=== PATIENT | male | born 1990 | race Caucasian/White ===

== ENCOUNTER → 2017-09-11 | Outpatient (REF) | payer OTHER ==
[2017-09-11 16:49] LABS: HEMATOCRIT 46.6 % (42.0-52.0); MEAN CORPUSCULAR HEMOGLOBIN 27.4 pg (27.0-33.0); MEAN CORPUSCULAR HGB CONC 32.2 g/dl (32.0-36.5); MEAN CORPUSCULAR VOLUME 85.2 fl (80.0-96.0); PLATELET COUNT, AUTOMATED 186 10^3/uL (150-450); RED BLOOD COUNT 5.47 10^6/uL (4.30-6.10); RED CELL DISTRIBUTION WIDTH 12.8 % (11.5-14.5); WHITE BLOOD COUNT 10.4 10^3/uL (4.0-10.0)
[2017-09-11 17:38] LABS: ANION GAP 8 MEQ/L (8-16); BLOOD UREA NITROGEN 16 MG/DL (7-18); CALCIUM LEVEL 9.1 MG/DL (8.5-10.1); CARBON DIOXIDE LEVEL 27 MEQ/L (21-32); CHLORIDE LEVEL 101 MEQ/L (98-107); CREATININE FOR GFR 1.07 MG/DL (0.70-1.30); GLOMERULAR FILTRATION RATE > 60.0 (>60); GLUCOSE, FASTING 74 MG/DL (70-100); POTASSIUM SERUM 4.4 MEQ/L (3.5-5.1); SODIUM LEVEL 136 MEQ/L (136-145)
== END ==
LOC: M SFHCLERA 13:51
DX: R53.83 Other fatigue (principal)

== ENCOUNTER 2018-06-07 23:12 | Emergency (ER) | payer OTHER ==
[2018-06-08] MEDS: hydroCHLOROthiazide 12.5 MG CAPSULE PO (00:35)
[2018-06-08 00:54] LABS: BASO % 0.3 % (0.0-1.0); EOS # 0.2 10^3/uL (0.0-0.50); EOS % 1.9 % (0.0-3.0); HEMOGLOBIN 14.2 g/dl (13.5-17.5); IMMATURE GRANULOCYTE % 0.4 % (0-3.0); LYMPH # 1.1 10^3/uL (1.5-4.5); LYMPH % 10.7 % (24.0-44.0); MEAN CORPUSCULAR HEMOGLOBIN 28.2 pg (27.0-33.0); MEAN CORPUSCULAR HGB CONC 32.3 g/dl (32.0-36.5); MEAN CORPUSCULAR VOLUME 87.3 fl (80.0-96.0); MONO # 1.1 10^3/uL (0.0-0.8); MONO % 10.1 % (0.0-5.0); NEUTROPHILS # 8.1 10^3/uL (1.8-7.7); NEUTROPHILS % 76.6 % (36.0-66.0); PLATELET COUNT, AUTOMATED 164 10^3/uL (150-450); RED BLOOD COUNT 5.04 10^6/uL (4.30-6.10); RED CELL DISTRIBUTION WIDTH 13.2 % (11.5-14.5); WHITE BLOOD COUNT 10.5 10^3/uL (4.0-10.0)
[2018-06-08 00:59] LABS: APPEARANCE, URINE CLEAR (CLEAR); BACTERIA, URINE AUTO NEGATIVE (NEGATIVE); BILIRUBIN, URINE AUTO NEGATIVE (NEGATIVE); BLOOD, URINE BLOOD NEGATIVE (NEGATIVE); COLOR, URINE YELLOW (YELLOW); GLUCOSE, URINE (UA) AUTO NEGATIVE (NEGATIVE); KETONE, URINE AUTO NEGATIVE (NEGATIVE); LEUKOCYTE ESTERASE, URINE AUTO NEGATIVE (NEGATIVE); MUCUS, URINE SMALL (NEGATIVE); NITRITE, URINE AUTO NEGATIVE (NEGATIVE); PROTEIN, URINE AUTO NEGATIVE (NEGATIVE); RBC, URINE AUTO 1 /HPF (0-3); SQUAMOUS EPITHELIAL CELL UR AU 0 /HPF (0-6); UROBILINOGEN, URINE AUTO 0.2 mg/dL (0.0-2.0); WBC, URINE AUTO 0 /HPF (0-3)
[2018-06-08 01:16] LABS: ANION GAP 6 MEQ/L (8-16); BLOOD UREA NITROGEN 19 MG/DL (7-18); CALCIUM LEVEL 8.9 MG/DL (8.5-10.1); CARBON DIOXIDE LEVEL 28 MEQ/L (21-32); CHLORIDE LEVEL 106 MEQ/L (98-107); CREATININE FOR GFR 1.23 MG/DL (0.70-1.30); GLOMERULAR FILTRATION RATE > 60.0 (>60); GLUCOSE, FASTING 98 MG/DL (70-100); POTASSIUM SERUM 4.3 MEQ/L (3.5-5.1); SODIUM LEVEL 140 MEQ/L (136-145)
[2018-06-08 01:27] LABS: INFLUENZA A AMPLIFICATION NEGATIVE (NEGATIVE); INFLUENZA B AMPLIFICATION NEGATIVE (NEGATIVE)
[2018-06-08] MEDS: BENZONATATE 100 MG CAP PO (02:00)
== END 2018-06-08 02:09 | disposition home or self-care (01) ==
LOC: M ED 23:12
DX: J06.9 Acute upper respiratory infection, unspecified (principal); Z76.0 Encounter for issue of repeat prescription; I10 Essential (primary) hypertension; Z79.899 Other long term (current) drug therapy
CPT/HCPCS: 71046

== ENCOUNTER 2018-07-27 12:43 | Emergency (ER) | payer OTHER ==
[~2018-07-27] VITALS: Ht 180.3 cm; Wt 106.8 kg
[~2018-07-27 12:43] MED LIST: GUAI1SOL7 PO; HYDR12.55 PO; LISI40TA PO; TESS100C PO
[2018-07-27] MEDS ORDERED: MOTR200T44 PO (12:50)
[2018-07-27] MEDS ORDERED: APAP500T10 PO (12:50)
[2018-07-27] MEDS ORDERED: ACETAMINOPHEN 325 MG TAB PO ONE (13:00)
[2018-07-27] MEDS ORDERED: IBUPROFEN 800 MG TAB PO ONE (13:15)
[2018-07-27] MEDS ORDERED: AMOX250C3 PO (13:19)
[2018-07-27 13:43] VITALS: BP 138/76
[2018-07-27 13:56] LABS: INFLUENZA A AMPLIFICATION NEGATIVE (NEGATIVE); INFLUENZA B AMPLIFICATION NEGATIVE (NEGATIVE)
== END 2018-07-27 13:45 | disposition home or self-care (01) ==
LOC: M ED 12:43
DX: J02.0 Streptococcal pharyngitis (principal); I10 Essential (primary) hypertension

== ENCOUNTER → 2019-05-01 | Outpatient (REF) | payer OTHER ==
[~2019-05-01] MED LIST changes: +AMOX250C3 PO; +APAP500T10 PO; +MOTR200T44 PO
== END ==
LOC: M LAB REF 09:23
PROVIDERS: ATTEND Physician Assistant
DX: J02.9 Acute pharyngitis, unspecified (principal)

== ENCOUNTER → 2020-01-01 | Outpatient (CLI) | payer OTHER ==
--- NOTE | 2020-01-01 13:24 | REP ---
Clinical: Pain. Technique: AP, lateral, bilateral oblique views of the right ankle. Comparison: None. Findings: Multiple corticated medial and lateral malleolar fracture fragments and chronic calcifications in the posterior joint space suggest old injuries. Acute lateral soft tissue swelling consist with inversion injury. No obvious acute fracture identified. Impression: Lateral swelling consistent with acute inversion injury. Chronic changes related to multiple old injuries/fractures. Electronically Signed by Diaz Renner MD 01/01/2020 01:16 P
== END ==
LOC: M WUC 12:51
PROVIDERS: ATTEND Physician Assistant
DX: M25.571 Pain in right ankle and joints of right foot (principal); M79.89 Other specified soft tissue disorders

== ENCOUNTER → 2020-02-02 | Outpatient (CLI) | payer OTHER ==
--- NOTE | 2020-02-02 14:21 | REP ---
RIGHT RIBS: REASON FOR EXAM: Strain of the anterior chest wall muscles. No direct trauma. FINDINGS: Five views of the ribs show no acute fracture or destructive osseous lesion. The accompanying frontal view of the chest shows no cardiomegaly, infiltrates, effusions, or pneumothoraces. IMPRESSION: Negative ribs series. Electronically Signed by Scotty Jaimes DO 02/02/2020 04:57 P
== END ==
LOC: M WUC 10:52
PROVIDERS: ATTEND Physician Assistant
DX: S29.011A Strain of muscle and tendon of front wall of thorax, initial encounter (principal); X58.XXXA Exposure to other specified factors, initial encounter; Y92.89 Other specified places as the place of occurrence of the external cause

== ENCOUNTER 2020-03-03 23:56 | Emergency (ER) | payer OTHER ==
[2020-03-04] MEDS ORDERED: ISOVUE-370 76% 100ML VIAL As Ordered ONE (01:22)
[2020-03-04] MEDS ORDERED: MORPHINE 4 MG/ML 1ML VIAL/SYRINGE (J2270) As Ordered ONE (01:25)
[2020-03-04] MEDS ORDERED: ONDANSETRON 4MG/2ML VIAL As Ordered ONE (01:36)
--- NOTE | 2020-04-30 11:08 | HPE ---
DATE OF ADMISSION: 03/04/2020 CHIEF COMPLAINT: Groin and leg pain. HISTORY OF PRESENT ILLNESS: Mr. Calderon is a healthy 30-year-old male admitted for hypertension. He was using a bread knife to separate a frozen burger delia roughly about 11 p.m. last night, March 03, 2020, when the knife slipped and hit right his groin and was bleeding. His friend then drove him to the hospital. He spent from midnight up to about 4 a.m. this morning here in the emergency room being observed here. They have stopped the bleeding with local pressure and sent him home. He had a CT angiogram of his leg showing injury to part of the sartorius, but intact femoral artery and vein and a small blush right where the muscles are. This seems to have stabilized and he was discharged home. When he got home, the patient noted continued oozing from the wound; this was stapled closed and thus he called the ambulance and brought him back here in the hospital. He is hemodynamically stable, but he is complaining of increasing pain, swelling on his right leg with some mild numbness along the medial side of his thigh, also difficulty in urinating and ambulating due to pain from the pressure in that area. PAST MEDICAL HISTORY: Hypertension. PAST SURGICAL HISTORY: None. REVIEW OF SYSTEMS: He was well prior to his accident. All other systems negative. He denies any prior history of bleeding or chronic problems. He is not on any blood thinner. He denies any chronic back pain or discomfort. PHYSICAL EXAMINATION: His vitals here in the emergency room shows he is hemodynamically stable with elevated blood pressure. Last night on presentation, his blood pressure was 151/98, temperature of 99, pulse rate of 115, saturation 97% on room air. Today, his blood pressure is 145/83 on the monitor. He is seen reclining on the stretcher relatively comfortable, except with movement and change in position. Skin is warm, moist. Normocephalic, atraumatic. [place] palpebral conjunctivae, non-icteric sclerae. Neck supple. No other signs of external injury except for the right groin. Lung sounds are clear to auscultation bilaterally. No wheezing. Heart: Rate and rhythm are regular with no murmurs. Abdomen: Soft, non-distended, nontender. Over the right groin area, there is roughly about a 2 cm slightly oblique wound that is closed with two gary. Underneath shows evidence for bruising and hematoma. There is no currently active oozing at the area. The rest of the right lower extremity shows no swelling. He is able to move his knee and ankle. He has got intact sensation to the whole of his leg. He has got good distal pulses. The femoral pulse is hard to ascertain due to the swelling and tenderness. As mentioned, he had CT angiogram of the lower extremity done last night. This shows a small amount of hematoma at the intramuscular level between the sartorius and the iliacus muscle. Intact common femoral artery and vein. There is a slight blustering at times. Follow up ultrasound done today showed about an 8 x 4 cm hematoma with an intact [employer] and CFV. His hemoglobin last night was 14, dropped to 12 today. IMPRESSION/PLAN: Accidental stab wound to the right groin with associated intramuscular hematoma causing discomfort. Due to the patients discomfort, I am concerned about whether this will expand or not. I will admit the patient for observation in the IC area and elevate the affected leg. I dont see any active oozing at this time and probably will be just pain control issues, as well as mobilization issue with icing of the muscle swelling and discomfort will go down. If not, the other alternative will be to increase the incision site and evacuate the hematoma either at the bedside or in the operating room, but otherwise this seems to be a muscular bleed, rather than a main vessel bleed, which should stabilize my itself. TIN
== END 2020-03-04 03:00 | disposition home or self-care (01) ==
LOC: M ED 23:56
DX: S71.131A Puncture wound without foreign body, right thigh, initial encounter (principal); S70.11XA Contusion of right thigh, initial encounter; W26.0XXA Contact with knife, initial encounter; Y92.9 Unspecified place or not applicable; Z79.899 Other long term (current) drug therapy
CPT/HCPCS: 73706; 96374; 96375; 99284; J2270; J2405; Q9967

== ENCOUNTER 2020-03-04 13:29 | Observation (INO) | payer OTHER ==
[2020-03-04] MEDS ORDERED: MORPHINE 2 MG/ML 1ML VIAL (J2270) As Ordered ONE (13:49)
[2020-03-04] MEDS ORDERED: ONDANSETRON 4MG/2ML VIAL As Ordered ONE (13:52)
[2020-03-04] MEDS ORDERED: KETOROLAC 30 MG/ML 1ML VIAL As Ordered ONE (23:13)
[2020-03-05] MEDS ORDERED: KETOROLAC 30 MG/ML 1ML VIAL As Ordered ONE ×4 (06:05→20:37)
[2020-03-05] MEDS ORDERED: lisinopriL 20 MG TAB As Ordered ONE (09:17)
[2020-03-06] MEDS ORDERED: lisinopriL 20 MG TAB As Ordered ONE (07:55)
[2020-04-19 08:31] LABS: INR 1.05; PARTIAL THROMBOPLASTIN TIME 24.5 SECONDS (24.2-38.5); PROTHROMBIN TIME 13.9 SECONDS (12.5-14.3)
[2020-04-19 08:32] LABS: INR 1.08; PROTHROMBIN TIME 14.2 SECONDS (12.5-14.3)
[2020-04-19 18:37] LABS: BASO % 0.2 % (0.0-1.0); EOS # 0.2 10^3/uL (0.0-0.5); EOS % 1.2 % (0.0-3.0); HEMATOCRIT 38.8 % (42.0-52.0); HEMOGLOBIN 12.8 g/dl (13.5-17.5); LYMPH # 1.6 10^3/uL (1.5-5.0); LYMPH % 13.2 % (24.0-44.0); MEAN CORPUSCULAR HEMOGLOBIN 27.8 pg (27.0-33.0); MEAN CORPUSCULAR VOLUME 84.2 fl (80.0-96.0); MONO # 1.2 10^3/uL (0.0-0.8); MONO % 9.6 % (0.0-5.0); NEUTROPHILS # 9.2 10^3/uL (1.5-8.5); NEUTROPHILS % 75.3 % (36.0-66.0); PLATELET COUNT, AUTOMATED 235 10^3/uL (150-450); RED BLOOD COUNT 4.61 10^6/uL (4.30-6.10); WHITE BLOOD COUNT 12.2 10^3/uL (4.0-10.0)
[2020-04-19 18:37] LABS: HEMOGLOBIN 14.3 g/dl (13.5-17.5); MEAN CORPUSCULAR HEMOGLOBIN 27.7 pg (27.0-33.0); MEAN CORPUSCULAR HGB CONC 33.3 g/dl (32.0-36.5); MEAN CORPUSCULAR VOLUME 83.2 fl (80.0-96.0); PLATELET COUNT, AUTOMATED 227 10^3/uL (150-450); RED BLOOD COUNT 5.17 10^6/uL (4.30-6.10); WHITE BLOOD COUNT 9.2 10^3/uL (4.0-10.0)
[2020-04-25 11:22] LABS: HEMATOCRIT 35.9 % (42.0-52.0); HEMOGLOBIN 11.8 g/dl (13.5-17.5); MEAN CORPUSCULAR HEMOGLOBIN 28.2 pg (27.0-33.0); MEAN CORPUSCULAR HGB CONC 32.9 g/dl (32.0-36.5); MEAN CORPUSCULAR VOLUME 85.7 fl (80.0-96.0); PLATELET COUNT, AUTOMATED 206 10^3/uL (150-450); RED BLOOD COUNT 4.19 10^6/uL (4.30-6.10); WHITE BLOOD COUNT 10.5 10^3/uL (4.0-10.0)
--- NOTE | 2020-05-01 08:04 | HPE ---
DATE OF ADMISSION: 03/04/2020 CHIEF COMPLAINT: Groin and leg pain. HISTORY OF PRESENT ILLNESS: Mr. Calderon is a healthy 30-year-old male admitted for hypertension. He was using a bread knife to separate a frozen burger delia roughly about 11 p.m. last night, March 03, 2020, when the knife slipped and hit right his groin and was bleeding. His friend then drove him to the hospital. He spent from midnight up to about 4 a.m. this morning here in the emergency room being observed here. They have stopped the bleeding with local pressure and sent him home. He had a CT angiogram of his leg showing injury to part of the sartorius, but intact femoral artery and vein and a small blush right where the muscles are. This seems to have stabilized and he was discharged home. When he got home, the patient noted continued oozing from the wound; this was stapled closed and thus he called the ambulance and brought him back here in the hospital. He is hemodynamically stable, but he is complaining of increasing pain, swelling on his right leg with some mild numbness along the medial side of his thigh, also difficulty in urinating and ambulating due to pain from the pressure in that area. PAST MEDICAL HISTORY: Hypertension. PAST SURGICAL HISTORY: None. REVIEW OF SYSTEMS: He was well prior to his accident. All other systems negative. He denies any prior history of bleeding or chronic problems. He is not on any blood thinner. He denies any chronic back pain or discomfort. PHYSICAL EXAMINATION: His vitals here in the emergency room shows he is hemodynamically stable with elevated blood pressure. Last night on presentation, his blood pressure was 151/98, temperature of 99, pulse rate of 115, saturation 97% on room air. Today, his blood pressure is 145/83 on the monitor. He is seen reclining on the stretcher relatively comfortable, except with movement and change in position. Skin is warm, moist. Normocephalic, atraumatic. [place] palpebral conjunctivae, non-icteric sclerae. Neck supple. No other signs of external injury except for the right groin. Lung sounds are clear to auscultation bilaterally. No wheezing. Heart: Rate and rhythm are regular with no murmurs. Abdomen: Soft, non-distended, nontender. Over the right groin area, there is roughly about a 2 cm slightly oblique wound that is closed with two gary. Underneath shows evidence for bruising and hematoma. There is no currently active oozing at the area. The rest of the right lower extremity shows no swelling. He is able to move his knee and ankle. He has got intact sensation to the whole of his leg. He has got good distal pulses. The femoral pulse is hard to ascertain due to the swelling and tenderness. As mentioned, he had CT angiogram of the lower extremity done last night. This shows a small amount of hematoma at the intramuscular level between the sartorius and the iliacus muscle. Intact common femoral artery and vein. There is a slight blustering at times. Follow up ultrasound done today showed about an 8 x 4 cm hematoma with an intact [employer] and CFV. His hemoglobin last night was 14, dropped to 12 today. IMPRESSION/PLAN: Accidental stab wound to the right groin with associated intramuscular hematoma causing discomfort. Due to the patients discomfort, I am concerned about whether this will expand or not. I will admit the patient for observation in the IC area and elevate the affected leg. I dont see any active oozing at this time and probably will be just pain control issues, as well as mobilization issue with icing of the muscle swelling and discomfort will go down. If not, the other alternative will be to increase the incision site and evacuate the hematoma either at the bedside or in the operating room, but otherwise this seems to be a muscular bleed, rather than a main vessel bleed, which should stabilize my itself. TIN
[2020-05-20 03:00] LABS: ALT/SGPT 37 U/L (12-78); BILIRUBIN,DIRECT 0.3 MG/DL (0.0-0.2); BILIRUBIN,TOTAL 0.5 MG/DL (0.2-1.0); BLOOD UREA NITROGEN 20 MG/DL (7-18); CALCIUM LEVEL 8.7 MG/DL (8.5-10.1); CARBON DIOXIDE LEVEL 29 MEQ/L (21-32); CHLORIDE LEVEL 100 MEQ/L (98-107); CREATININE FOR GFR 1.26 MG/DL (0.70-1.30); GLOMERULAR FILTRATION RATE > 60.0 (>60); GLUCOSE, FASTING 116 MG/DL (70-100); POTASSIUM SERUM 3.5 MEQ/L (3.5-5.1); SODIUM LEVEL 137 MEQ/L (136-145); TOTAL PROTEIN 7.1 GM/DL (6.4-8.2)
[2020-05-20 03:00] LABS: BLOOD UREA NITROGEN 15 MG/DL (7-18); CALCIUM LEVEL 9.4 MG/DL (8.5-10.1); CARBON DIOXIDE LEVEL 29 MEQ/L (21-32); CHLORIDE LEVEL 98 MEQ/L (98-107); CREATININE FOR GFR 1.28 MG/DL (0.70-1.30); GLOMERULAR FILTRATION RATE > 60.0 (>60); GLUCOSE, FASTING 100 MG/DL (70-100); POTASSIUM SERUM 3.6 MEQ/L (3.5-5.1); SODIUM LEVEL 134 MEQ/L (136-145)
== END 2020-03-06 12:06 | disposition home health service (06) ==
LOC: M ED 13:29 → M MS5PR 16:30
PROVIDERS: ADMIT Internal Medicine; ATTEND Internal Medicine
DX: I10 Essential (primary) hypertension (principal); S31.113A Laceration without foreign body of abdominal wall, right lower quadrant without penetration into peritoneal cavity, initial encounter; S76.091A Other specified injury of muscle, fascia and tendon of right hip, initial encounter; S30.1XXA Contusion of abdominal wall, initial encounter; M79.89 Other specified soft tissue disorders; R20.0 Anesthesia of skin; R39.198 Other difficulties with micturition; W26.0XXA Contact with knife, initial encounter; Y92.89 Other specified places as the place of occurrence of the external cause; Y93.G1 Activity, food preparation and clean up; Z79.899 Other long term (current) drug therapy
CPT/HCPCS: 76857; 80048; 80076; 85025; 85027; 85610; 85730; 96361; 96374; 96375; 96376; 97110; 97116; 97161; 97530; 99284; J1885; J2270; J2405

== ENCOUNTER 2020-03-12 09:25 | Emergency (ER) | payer OTHER ==
[2020-03-12] MEDS ORDERED: ISOVUE-370 76% 100ML VIAL ONE (13:05)
[2020-03-12] MEDS ORDERED: KETOROLAC 30 MG/ML 1ML VIAL As Ordered ONE (14:49)
[2020-04-24 11:07] LABS: INR 1.05; PARTIAL THROMBOPLASTIN TIME 33.7 SECONDS (24.2-38.5); PROTHROMBIN TIME 13.9 SECONDS (12.5-14.3)
[2020-04-25 17:50] LABS: BASO # 0.1 10^3/uL (0.0-0.2); BASO % 0.4 % (0.0-1.0); EOS # 0.3 10^3/uL (0.0-0.5); EOS % 2.4 % (0.0-3.0); HEMATOCRIT 38.5 % (42.0-52.0); HEMOGLOBIN 12.6 g/dl (13.5-17.5); LYMPH % 14.7 % (24.0-44.0); MEAN CORPUSCULAR HEMOGLOBIN 27.8 pg (27.0-33.0); MEAN CORPUSCULAR HGB CONC 32.7 g/dl (32.0-36.5); MONO # 1.2 10^3/uL (0.0-0.8); MONO % 8.6 % (0.0-5.0); NEUTROPHILS # 9.9 10^3/uL (1.5-8.5); NEUTROPHILS % 72.1 % (36.0-66.0); PLATELET COUNT, AUTOMATED 375 10^3/uL (150-450); RED BLOOD COUNT 4.53 10^6/uL (4.30-6.10); WHITE BLOOD COUNT 13.7 10^3/uL (4.0-10.0)
[2020-04-25 19:16] LABS: ERYTHROCYTE SEDIMENTATION RATE 57 mm/hr (0-15)
[2020-06-03 16:16] LABS: ALT/SGPT 28 U/L (12-78); BILIRUBIN,DIRECT 0.2 MG/DL (0.0-0.2); BILIRUBIN,TOTAL 0.6 MG/DL (0.2-1.0); BLOOD UREA NITROGEN 26 MG/DL (7-18); C REACTIVE PROTEIN QUANTITATIV 2.59 MG/DL (0.00-0.30); CALCIUM LEVEL 9.3 MG/DL (8.5-10.1); CARBON DIOXIDE LEVEL 29 MEQ/L (21-32); CHLORIDE LEVEL 100 MEQ/L (98-107); CREATININE FOR GFR 1.19 MG/DL (0.70-1.30); GLOMERULAR FILTRATION RATE > 60.0 (>60); GLUCOSE, FASTING 87 MG/DL (70-100); POTASSIUM SERUM 4.1 MEQ/L (3.5-5.1); SODIUM LEVEL 134 MEQ/L (136-145); TOTAL PROTEIN 7.8 GM/DL (6.4-8.2)
== END 2020-03-12 15:40 | disposition home or self-care (01) ==
LOC: M ED 09:25
DX: S31.131A Puncture wound of abdominal wall without foreign body, left upper quadrant without penetration into peritoneal cavity, initial encounter (principal); S30.1XXA Contusion of abdominal wall, initial encounter; W26.0XXA Contact with knife, initial encounter; Y92.019 Unspecified place in single-family (private) house as the place of occurrence of the external cause; I10 Essential (primary) hypertension; Z79.899 Other long term (current) drug therapy
CPT/HCPCS: 72193; 80053; 82248; 85025; 85610; 85652; 85730; 86140; 86850; 86900; 86901; 96374; 99284; J1885; Q9967

== ENCOUNTER 2020-09-28 08:48 | Emergency (ER) | payer OTHER ==
[~2020-09-28] VITALS: Ht 182.9 cm; Wt 103.1 kg
[~2020-09-28 08:48] MED LIST changes: -LISI40TA PO; +LISI40TA4 PO
[2020-09-28] MEDS ORDERED: AMLO1TAB24 (09:09)
[2020-09-28] MEDS ORDERED: CHLO125TA (09:09)
[2020-09-28] MEDS ORDERED: KETOROLAC 30 MG/ML 1ML VIAL IV ONE (09:15)
[2020-09-28 10:02] LABS: ALBUMIN 4.4 GM/DL (3.2-5.2); ALT/SGPT 41 U/L (12-78); BILIRUBIN,DIRECT < 0.1 MG/DL (0.0-0.2); BILIRUBIN,TOTAL 0.4 MG/DL (0.2-1.0); LIPASE 129 U/L (73-393); TOTAL PROTEIN 8.4 GM/DL (6.4-8.2)
--- NOTE | 2020-09-28 10:12 | REP ---
INDICATION: cp COMPARISON: 06/08/2018 TECHNIQUE: Portable AP view of the chest FINDINGS: The mediastinum and cardiac silhouette are stable and within normal limits for portable technique. The lung alvarez are clear without acute consolidation, effusion, or pneumothorax. Skeletal structures are intact. IMPRESSION: No acute cardiopulmonary process appreciated. <Electronically signed by Diaz Renner > 09/28/20 [id number]
[2020-09-28 13:15] VITALS: BP 127/65
--- NOTE | 2020-09-28 20:10 | ECGEPIP ---
[facility] - ED Test Date: 2020-09-28 Pat Name: PANKAJ PATINO Department: Room: - Gender: Male Machine Hand: : [id number] Requested By: Sophie Sandoval Order Number: [id number] Reading MD: Sophie Sandoval Measurements Intervals [place] Rate: 77 P: 38 NC: 158 QRS: 32 QRSD: 88 T: -10 QT: 358 QTc: 405 Interpretive Statements Normal sinus rhythm Nonspecific T wave abnormality No prior Electronically Signed on 09-28-2020 20:11:23 EST by Sophie Sandoval
== END 2020-09-28 13:31 | disposition home or self-care (01) ==
LOC: M ED 08:48
DX: R07.9 Chest pain, unspecified (principal); I10 Essential (primary) hypertension; Z79.899 Other long term (current) drug therapy
CPT/HCPCS: 71045; 80047; 80076; 83690; 84484; 85379; 93005; 93041; 94760; 96374; 99285; J1885

== ENCOUNTER 2020-11-25 07:32 | Emergency (ER) | payer OTHER ==
[~2020-11-25] VITALS: Ht 180.3 cm; Wt 100.9 kg
[~2020-11-25 07:32] MED LIST changes: +AMLO1TAB24 PO; +CHLO125TA PO; +OMEP1CAP73 PO; +TUMS500C PO; +VITMTA PO
[2020-11-25 08:38] LABS: BASO % 0.3 % (0.0-1.0); EOS # 0.2 10^3/uL (0.0-0.5); EOS % 1.5 % (0.0-3.0); HEMATOCRIT 45.6 % (42.0-52.0); HEMOGLOBIN 14.8 g/dl (13.5-17.5); LYMPH # 1.5 10^3/uL (1.5-5.0); LYMPH % 12.8 % (24.0-44.0); MEAN CORPUSCULAR HEMOGLOBIN 27.5 pg (27.0-33.0); MEAN CORPUSCULAR HGB CONC 32.5 g/dl (32.0-36.5); MEAN CORPUSCULAR VOLUME 84.6 fl (80.0-96.0); NEUTROPHILS # 9.1 10^3/uL (1.5-8.5); PLATELET COUNT, AUTOMATED 239 10^3/uL (150-450); RED BLOOD COUNT 5.39 10^6/uL (4.30-6.10); WHITE BLOOD COUNT 11.9 10^3/uL (4.0-10.0)
--- NOTE | 2020-11-25 08:40 | REP ---
INDICATION: r/o dvt RUE COMPARISON: None. TECHNIQUE: Christian scale and color Doppler evaluation using linear high frequency transducer. FINDINGS: Ultrasound examination of the right upper extremity deep venous structures including jugular, axillary, subclavian, brachial, basilic, and cephalic veins demonstrate normal venous wave characteristics without evidence for deep venous thrombosis. Focal swelling at the elbow was noted and demonstrates subcutaneous edema with a small complex avascular fluid collection measuring 2.7 x 0.3 x 1.7 cm possibly representing bursitis. IMPRESSION: No evidence for deep venous thrombosis. Swelling at the elbow with small underlying fluid collection possibly representing bursitis. <Electronically signed by Diaz Renner > 11/25/20 0837
--- NOTE | 2020-11-25 09:00 | REP ---
INDICATION: R elbow pain/swelling COMPARISON: None. TECHNIQUE: AP, lateral, bilateral oblique views of the right elbow. FINDINGS: No acute fracture or dislocation. Very minimal spurring at the coronoid process and along the posterior joint space suggest mild degenerative change. Lateral view demonstrates mild posterior swelling. No subcutaneous emphysema or foreign body. IMPRESSION: Minimal degenerative changes and mild posterior swelling. <Electronically signed by Diaz Renner > 11/25/20 [id number]
[2020-11-25 09:06] LABS: BLOOD UREA NITROGEN 17 MG/DL (7-18); C REACTIVE PROTEIN QUANTITATIV 1.01 MG/DL (0.00-0.30); CALCIUM LEVEL 9.3 MG/DL (8.5-10.1); CARBON DIOXIDE LEVEL 30 MEQ/L (21-32); CHLORIDE LEVEL 104 MEQ/L (98-107); CREATININE FOR GFR 0.98 MG/DL (0.70-1.30); GLOMERULAR FILTRATION RATE > 60.0 (>60); GLUCOSE, FASTING 83 MG/DL (70-100); POTASSIUM SERUM 3.9 MEQ/L (3.5-5.1); SODIUM LEVEL 139 MEQ/L (136-145); URIC ACID 3.9 MG/DL (3.5-7.2)
[2020-11-25 09:14] LABS: ERYTHROCYTE SEDIMENTATION RATE 12 mm/hr (0-15)
[2020-11-25 10:43] VITALS: BP 139/78
[2020-11-25] MEDS ORDERED: IBUP80TA PO (11:12)
--- NOTE | 2020-11-26 09:18 | ER ---
ER CONSULTATION DATE OF CONSULTATION: November 25, 2020 at 9:00 AM CONSULTING SERVICE: Orthopedic Service CONSULTING PHYSICIAN: Sonu Hensley M.D. 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 The patient presented with right olecranon bursitis. This is likely aseptic in nature, however aseptic olecranon bursitis cannot be ruled out at this point. The patient's labs included a white blood cell count of 11.9, ESR of 12 and a CRP of 1.01 which is not significantly concerning for a septic olecranon bursitis, however it cannot be ruled out this early in this stage. The patient presented to [facility] for further evaluation and treatment. Orthopedic Surgery was consulted for further evaluation and treatment. REVIEW OF SYSTEMS: A 14-point review of systems was negative unless otherwise described in the HPI above. PAST MEDICAL HISTORY: The patient's past medical history is significant for hypertension. PAST SURGICAL HISTORY: The patient's past surgical history is significant for: 1. Colonoscopy one year prior. 2. ACL MCL reconstruction in 2011. SOCIAL HISTORY: Social drinker, nonsmoker, no intravenous drug abuse. ALLERGIES: No allergies to medications. CURRENT MEDICATIONS: Unknown hypertension medication. PHYSICAL EXAMINATION: GENERAL APPEARANCE: The patient was alert and oriented to person, time and place. He had a 5 by 5 cm area of skin changes which looked red, possible cellulitis appearing region overlying the right olecranon. He was neurovascularly intact. The right lower extremity included 5/5 motor strength to the musculature. The musculocutaneous axillary, radial, median and ulnar nerve distributions. He had sensation intact to light touch to the musculocutaneous axillary, radial, median and ulnar nerve distributions. He had 2+ radial and ulnar pulse and under 2 second capillary refill to the digits of the patient's right hand. The patient had 2+ radial and ulnar pulse and brisk capillary refill of the digits. He had a full range of motion about the elbow with extension and flexion and pronation and supination equal to the contralateral side. IMAGING: The patient's right elbow had no osseous abnormalities appreciated. I personally reviewed the radiographs. IMPRESSION: This is a 30-year-old male with suspected aseptic right olecranon bursitis. PLAN: Given the patient's laboratory findings, the patient likely had an aseptic olecranon bursitis. We will continue to observe him closely. The patient was prescribed rest and ice, physical therapy and NSAIDs for the next day or two. The patient will follow up with the [facility] for further follow up. If required, the patient's right olecranon bursitis may be aspirated in order to yield a synovial white blood cell count, cultures and gram stain. We will see how he responds to NSAIDs and proceed after continued observation in the clinic.
[2020-11-27 16:12] LABS: Lyme Disease IgG/IgM Antibodie <0.91 ISR (0.00-0.90); Lyme Disease IgM Ab Quantitati <0.80 index (0.00-0.79)
== END 2020-11-25 11:24 | disposition home or self-care (01) ==
LOC: M ED 07:32
DX: M19.021 Primary osteoarthritis, right elbow (principal); M70.31 Other bursitis of elbow, right elbow; I10 Essential (primary) hypertension; K21.9 Gastro-esophageal reflux disease without esophagitis; Z79.899 Other long term (current) drug therapy

== ENCOUNTER → 2021-08-30 | Outpatient (REF) | payer OTHER ==
[~2021-08-30] MED LIST changes: +IBUP80TA PO
== END ==
LOC: M SMT 14:40
PROVIDERS: ATTEND Urology
DX: Z30.2 Encounter for sterilization (principal)

== ENCOUNTER → 2022-09-03 | Outpatient (REF) | payer OTHER | LOC: M LAB REF 16:25 | PROVIDERS: ATTEND Physician Assistant | DX: J06.9 Acute upper respiratory infection, unspecified (principal) ==